=== PATIENT | male | born 2000 | race Caucasian/White ===

== ENCOUNTER 2023-03-06 09:02 | Emergency (ER) | payer OTHER ==
[~2023-03-06] VITALS: Ht 175.3 cm; Wt 63.5 kg
[2023-03-06 09:17] VITALS: BP 125/77
== END 2023-03-06 11:20 | disposition home or self-care (01) ==
LOC: ER 09:02
DX: R51.9 Headache, unspecified (principal); M54.2 Cervicalgia; Z88.0 Allergy status to penicillin
CPT/HCPCS: 99282